=== PATIENT | female | born 1985 | race Two or more races ===

== ENCOUNTER 2017-02-19 01:49 | Emergency (ER) | payer SELFPAY ==
[~2017-02-19] VITALS: Ht 170.2 cm; Wt 93.0 kg
[2017-02-19 01:55] VITALS: BP 196/154
== END 2017-02-19 02:15 | disposition left against medical advice (07) ==
LOC: ER 01:51
DX: Z53.21 Procedure and treatment not carried out due to patient leaving prior to being seen by health care provider (principal)